=== PATIENT | male | born 1955 | race African-American/Black ===

== ENCOUNTER 2018-03-26 10:41 | Emergency (ER) | payer SELFPAY ==
[2018-03-26] MEDS ORDERED: HYDROcodone/Acetaminophen 10/325 mg Tablet ONE (10:54)
[2018-03-26] MEDS ORDERED: Ibuprofen 800 MG TAB ONE (10:55)
[2018-03-26] MEDS ORDERED: AMOXicillin 250 MG CAP ONE (10:55)
== END 2018-03-26 11:00 | disposition home or self-care (01) ==
LOC: BURERS 10:41
DX: K04.7 Periapical abscess without sinus (principal); R59.0 Localized enlarged lymph nodes; J45.909 Unspecified asthma, uncomplicated; F17.210 Nicotine dependence, cigarettes, uncomplicated
CPT/HCPCS: 99283